=== PATIENT | male | born 1990 | race African-American/Black ===

== ENCOUNTER 2020-02-04 13:53 | Emergency (ER) | payer SELFPAY ==
[~2020-02-04] VITALS: Ht 180.3 cm; Wt 70.3 kg
[2020-02-04] MEDS ORDERED: ACETAMINOPHEN 500MG TABLET PO ONE (14:45)
[2020-02-04 15:10] VITALS: BP 112/74
== END 2020-02-04 15:13 | disposition home or self-care (01) ==
LOC: ER 14:22
DX: B09 Unspecified viral infection characterized by skin and mucous membrane lesions (principal); F12.10 Cannabis abuse, uncomplicated
CPT/HCPCS: 99282